=== PATIENT | female | born 1970 | race Caucasian/White ===

== ENCOUNTER 2020-03-19 09:35 | Outpatient (CLI) | payer OTHER, SELFPAY ==
[2020-03-19 10:10] LABS: Alanine Aminotransferase 96 U/L (4-35); Albumin Level 4.1 g/dL (3.5-5.1); Alkaline Phosphatase 109 U/L (38-126); Anion Gap 7 mmol/L (8-16); Aspartate Amino Transferase 58 U/L (14-36); Bilirubin,Total 0.3 mg/dL (0.2-1.3); Blood Urea Nitrogen 6 mg/dL (7-17); Carbon Dioxide 20 mmol/L (22-30); Chloride 111 mmol/L (98-107); Cholesterol 159 mg/dL (0-200); Estimated Glomerular Filt Rate > 60; Glucose 103 mg/dL (65-105); HDL Direct 45 mg/dL; Potassium 3.8 mmol/L (3.4-5.0); Sodium 138 mmol/L (137-145); Triglycerides 170 mg/dL (<150)
[2020-03-19 10:14] LABS: Hemoglobin A1C 5.1 % (<5.7)
[2020-03-19 10:24] LABS: LDL Cholesterol Direct 82 mg/dL
[2020-03-19 10:39] LABS: Thyroid Stimulating Hormone < 0.015 uIU/mL (0.465-4.680)
[2020-03-19 10:44] LABS: Vitamin D 25 Hydroxy 25.5 ng/mL
[2020-03-19 10:44] LABS: Free T4 Free Thyroxine 1.16 ng/mL (0.78-2.19)
== END 2020-03-19 09:36 | disposition home or self-care (01) ==
PROVIDERS: PCP Internal Medicine; Referring Provider Nurse Practitioner; Visit Provider Internal Medicine
DX: E66.3 Overweight (principal); Z79.899 Other long term (current) drug therapy; E78.5 Hyperlipidemia, unspecified; E55.9 Vitamin D deficiency, unspecified; E03.9 Hypothyroidism, unspecified
CPT/HCPCS: 36415; 80053; 80061; 82306; 83036; 84439; 84443

== ENCOUNTER 2020-11-22 15:39 | Outpatient (CLI) | payer OTHER, SELFPAY ==
--- NOTE | ~2020-11-22 | CT_ITS ---
EXAMINATION: CT abdomen wo/w con DATE: 11/22/2020 16:29 INDICATION: Liver hemangioma TECHNIQUE: Computed tomography (CT) of the abdomen was performed without and subsequently with 100 cc Omnipaque 350 intravenous contrast, with postcontrast arterial and venous phase imaging. Automated e xposure control and iterative reconstruction technique were employed. Exam dose: 1150.08 mGy-cm tota l exam DLP. COMPARISON: 02/01/2013 CT abdomen 03/10/2007 abdominal ultrasound Limited examination FINDINGS: The lung bases are clear of infiltrate or consolidation. Normal heart size. No pericardial or pleural effusion. There are multiple scattered small hepatic cysts, the largest measuring up to 8.5 mm. No hepatic spac e-occupying mass lesion is noted otherwise. Normal splenic size. No pancreatic mass lesion, calcification or ductal dilatation. Normal morphology of the adrenal glands. No renal space occupying mass lesion. No urinary tract calculus or hydroureteronephrosis is evident. Normal caliber of the abdominal aorta. No intraperitoneal or retroperitoneal or pelvic mass lesion or adenopathy or ascites. Normal appendix. No bowel obstruction is evident. Small fat-containing umbilical hernia. Included skeletal structures are unremarkable. IMPRESSION: 8.5 mm and smaller hepatic cysts Reviewed, dictated and finalized at [facility]. Reviewed, dictated and finalized at [facility].
== END 2020-11-22 15:40 | disposition home or self-care (01) ==
PROVIDERS: PCP Internal Medicine; Visit Provider Internal Medicine
DX: D18.03 Hemangioma of intra-abdominal structures (principal); K76.89 Other specified diseases of liver
CPT/HCPCS: 74170; Q9967

== ENCOUNTER 2021-05-22 12:53 | Outpatient (CLI) | payer OTHER, SELFPAY ==
--- NOTE | ~2021-05-22 | MR_ITS ---
EXAMINATION: MR brain/brain stem wo con DATE: 05/22/2021 13:53 INDICATION: Generalized tonic-clonic seizure. Headache. TECHNIQUE: Magnetic resonance imaging (MRI) of the brain and brainstem was performed without intraven ous contrast. Sequences included sagittal and axial T1-weighted FSE, axial diffusion-weighted FS EPI, axial T2*-weighted GRE, axial T2-weighted FLAIR Propeller, axial T2-weighted Propeller, coronal T2-w eighted FLAIR, and coronal T1-weighted 3D FSPGR. Apparent diffusion coefficient (ADC) maps were creat ed. COMPARISON: Brain MRI 01/07/2015 FINDINGS: There are scattered areas of nonspecific increased T2-weighted signal intensity in the cere bral white matter and samantha. The hippocampi are normal and symmetric. There is no intracranial hemorrh age, acute infarction, or abnormal intracranial mass lesion. The ventricles are normal in size. There is complete opacification of right maxillary sinus, which is decrease in size from 01/07/2015. There i s mucosal thickening in sphenoid sinus. The orbits are normal. The mastoid air cells are normal. IMPRESSION: 1. Worsened mild nonspecific cerebral white matter disease and pontine disease, which likely represen ts chronic small vessel ischemic disease. 2. Chronic sinusitis. Reviewed, dictated and finalized at [facility]. IMPRESSION: 1. Worsened mild nonspecific cerebral white matter disease and pontine disease, which likely represents chronic small vessel ischemic disease. 2. Chronic sinusitis.
== END 2021-05-22 12:54 | disposition home or self-care (01) ==
PROVIDERS: PCP Internal Medicine; Visit Provider Internal Medicine
DX: G40.89 Other seizures (principal); R90.82 White matter disease, unspecified; J32.9 Chronic sinusitis, unspecified
CPT/HCPCS: 70551

== ENCOUNTER 2021-06-09 15:19 | Outpatient (CLI) | payer OTHER, SELFPAY ==
--- NOTE | ~2021-06-09 | MM_ITS ---
EXAMINATION: MM screening he[facility] BI w [facility] HISTORY: Screening TECHNIQUE: Craniocaudal and mediolateral oblique 3-D tomosynthesis images were obtained and synthetic 2-D images were generated. CAD analysis was submitted and interpreted. COMPARISON: Comparison to multiple prior studies sequentially, with oldest reviewed study dated 06/09. BREAST PARENCHYMAL COMPOSITION: There are scattered areas of fibroglandular density. FINDINGS: There is no evidence of suspicious mass, calcification, or architectural distortion to sugg est malignancy in either breast. There has been no suspicious interval change. IMPRESSION: 1. No mammographic evidence of malignancy. 2. Recommend routine screening mammography in one year. BI-RADS Category 1: Negative Reviewed, dictated and finalized at [facility].
== END 2021-06-09 15:20 | disposition home or self-care (01) ==
LOC: ANHIMG 15:20
PROVIDERS: PCP Internal Medicine; Visit Provider Internal Medicine
DX: Z12.31 Encounter for screening mammogram for malignant neoplasm of breast (principal)
CPT/HCPCS: 77063; 77067

== ENCOUNTER 2021-06-10 12:32 | Outpatient (CLI) | payer OTHER, SELFPAY ==
--- NOTE | 2021-06-11 10:59 | WPDNEUROLOGY ---
Neurology EEG Report General Information Date of Study: 06/10/21 TEST eeg DIAGNOSIS generalized tonic clonic seizures CONDITION OF RECORDING awake drowsy and sleep EEG NUMBER [id number] CLINICAL HISTORY patient reported a couple of weeks ago she had an episode of stiffening up and then convulsing for couple of minutes. No warning before and felt basically normal afterwards EEG DESCRIPTION whole record consists of medium to high voltage 5 to 7 hertz per 2nd theta activity admixed with intermittent medium voltage 3 to 4 hertz per 2nd delta activity. Hyperventilation not. Photic stimulation produced normal drive. Bilateral symmetrical sleep activity seen during sleep. Non paroxysmal. Non focal. Nonlateralizing. IMPRESSION Abnormal record due to the presence of bihemispheric theta and delta activity and absence of normal background rhythm though there is no evidence of paroxysmal activity throughout the tracing. Clinical correlation recommended these abnormalities could be suggestive of postictal state or else metabolic encephalopathy.
== END 2021-06-10 12:33 | disposition home or self-care (01) ==
PROVIDERS: PCP Internal Medicine; Visit Provider Internal Medicine
DX: G40.909 Epilepsy, unspecified, not intractable, without status epilepticus (principal); R94.01 Abnormal electroencephalogram [EEG]
CPT/HCPCS: 95816

== ENCOUNTER 2023-04-19 12:45 | Outpatient (RCR) | payer OTHER, SELFPAY ==
--- NOTE | 2023-03-23 11:44 | OPREHPOC ---
Outpatient Therapy Plan of Care This is a Multidisciplinary Plan of Care that may contain components documented by all disciplines (PT, OT, and ST.) PT Problem 1 PT Problem #1 Knowledge Deficit PT Goal 1 Goal 1. Patient will perform independent HEP Target Visit 5 PT Goal 2 Goal 2. Patient will verbalize urge suppression strategies Target Visit 5 PT Problem 2 PT Problem #2 Pain PT Goal 1 Goal 1. No pain with pelvic floor exam Target Visit 5 PT Problem 3 PT Problem #3 Impaired Functional ADLs PT Goal 1 Goal 1. Decrease urinary incontinence to no more than 2 instances a week Target Visit 5 PT Goal 2 Goal 2. Patient will be able to hold urine at least 15 minutes Target Visit 5 PT Problem 4 PT Problem #4 Impaired Strength PT Goal 1 Goal 1. Improve pelvic floor strength to at least 3/5 to decrease incontinence Target Visit 5 PT Goal 2 Goal 2. Improve pelvic floor endurance to 10 seconds to decrease incontinence Target Visit 5
--- NOTE | 2023-03-23 11:44 | PTOPEVAL1 ---
Assessment and note entered by Shannon Campbell DPT Evaluation Information Assessment Status Evaluation Subjective Information Pt reports she has trouble emptying her bladder, has to sit and think about it. Denies pain with b/ b, has had pelvic pain in the past and diagnosed with endo. Incontinence daily, a bunch . Wears 2 pads a day, unsure volume of incontinence. Voids 10 times a day and 1-2 times at night. Reports a lot of urgency and will run to the bathroom but still has trouble initiating urine stream. Issues have been getting worse over the past couple years . BM daily due to taking magnesium but has had constipation issues in the past. Fecal incontinence 2-3 times a week. Pt has been 1 time, vaginal delivery without complications. Hysterectomy in 2001. RTMD scheduled in June. Patient goal: initiate urine stream easier and decrease incontinence. Reports a lot of frustration with having to sit before voiding and with leaking. States she does not go out in the community and avoids fluid but would like to not have to do that. Reported Pain Level Pain Score 0: Self Report Assessment PT Clinical Summary The patient is presenting to skilled therapy with a several year history of worsening urinary incontinence, urgency, and pelvic pain. She presents with overall decreased hip and core strength, decreased pelvic floor strength and endurance, and increased pelvic floor muscle tone. These impairments are contributing to her frequent incontinence and difficulty initiating urine stream and her self-limitation of fluid and going out in the community. She will highly benefit from therapy to address these impairments and safely return to prior level of function. Plan of Care Interventions Hot Pack/Cold Pack,Manual Therapy,Neuro Re- education,Patient/Caregiver Education,Therapeutic Activities,Therapeutic Exercise PT Services Indicated Yes Treatment Frequency and 1 time a week for 4 weeks Duration These treatments will address the objective and functional deficits as defined above. The patient will be advanced safely and appropriately in order for the patient to progress towards his/her prior level of function. Additional exercises will be introduced and as well as a comprehensive home exercise program upon discharge, if needed, ?to ensure carryover of functional gains achieved in the clinic.
--- NOTE | 2023-04-06 11:55 | PCPTNOTE ---
Patient did not show up for appointment scheduled 04/06/23. She rescheduled her appointment on 04/05/23 originally to later the same day, and then to 04/06/23.
--- NOTE | 2023-04-16 12:48 | PCPTNOTE ---
Patient called to cancel appointment for visit 04/16/23 due to car trouble.
--- NOTE | 2023-04-19 13:13 | OPREHPOC ---
Outpatient Therapy Plan of Care This is a Multidisciplinary Plan of Care that may contain components documented by all disciplines (PT, OT, and ST.) PT Problem 1 PT Problem #1 Knowledge Deficit PT Goal 1 Goal 1. Patient will perform independent HEP Target Visit 5 Progress Partially Met PT Goal 2 Goal 2. Patient will verbalize urge suppression strategies Target Visit 5 Progress Partially Met PT Problem 2 PT Problem #2 Pain PT Goal 1 Goal 1. No pain with pelvic floor exam Target Visit 5 Progress Met PT Problem 3 PT Problem #3 Impaired Functional ADLs PT Goal 1 Goal 1. Decrease urinary incontinence to no more than 2 instances a week Target Visit 5 Progress Partially Met PT Goal 2 Goal 2. Patient will be able to hold urine at least 15 minutes Target Visit 5 Progress Partially Met PT Problem 4 PT Problem #4 Impaired Strength PT Goal 1 Goal 1. Improve pelvic floor strength to at least 3/5 to decrease incontinence Target Visit 5 Progress Met PT Goal 2 Goal 2. Improve pelvic floor endurance to 10 seconds to decrease incontinence Target Visit 5 Progress Partially Met
--- NOTE | 2023-04-19 13:13 | PTOPPROG ---
Assessment and note entered by Shannon Campbell DPT Evaluation Information Assessment Status Progress Subjective Information This is patient's first attended visit since initial evaluation. Pt reports things are going well since her first visit in therapy. Has noticed a difference in her ability to void when propping her feet up on a stool. Has not been needing to use pads during the day, but has still been wearing them at night. No incontinence during the day, just at night now. Unsure how often but is not as often. Still avoiding going out in the community and avoiding fluids. Assessment PT Clinical Summary The patient has made some progress in therapy and reports improvements in her ability to initiate voiding and decreased frequency of incontinence. She demonstrates improved pelvic floor strength and endurance and reports no pain with palpation. She does continue to have frequent incontinence and avoids fluids at times and will benefit from further therapy to return to prior level of function. Plan of Care Interventions Manual Therapy,Neuro Re-education,Patient/ Caregiver Education,Therapeutic Activities, Therapeutic Exercise PT Services Indicated Yes Treatment Frequency and 1 visit a week for 3 visits Duration These treatments will address the objective and functional deficits as defined above. The patient will be advanced safely and appropriately in order for the patient to progress towards his/her prior level of function. Additional exercises will be introduced and as well as a comprehensive home exercise program upon discharge, if needed, ?to ensure carryover of functional gains achieved in the clinic. This treatment plan has been reviewed and agreement upon by the patient.
--- NOTE | 2023-04-26 15:17 | PCPTNOTE ---
Patient did not show up to appointment on 04/26/23.
--- NOTE | 2023-05-10 15:10 | PCPTNOTE ---
Patient called to cancel appointment 05/10/23. Patient was called back to discharge from therapy due to attendance policy, left voicemail.
--- NOTE | 2023-05-19 11:39 | PTOPDC ---
Assessment and note entered by Shannon Campbell DPT Evaluation Information Assessment Status Discharge - Pt Not Present Subjective Information - Assessment PT Clinical Summary Patient is being discharged due to attendance policy. Plan of Care PT Services Indicated No
== END 2023-05-19 14:42 | disposition home or self-care (01) ==
LOC: ANHGOSHPT 12:45
PROVIDERS: PCP Internal Medicine
DX: N39.46 Mixed incontinence (principal); R10.2 Pelvic and perineal pain; M62.838 Other muscle spasm; K59.00 Constipation, unspecified; R15.9 Full incontinence of feces; N39.8 Other specified disorders of urinary system
CPT/HCPCS: 97112; 97530